=== PATIENT | male | born 1965 | race Caucasian/White ===

== ENCOUNTER → 2023-12-21 13:31 | Outpatient (REF) | payer OTHER, SELFPAY ==
[2023-12-21 15:27] LABS: Blood Urea Nitrogen 13 mg/dl (9-20); Calcium 9.5 mg/dl (8.4-10.2); Carbon Dioxide 26 mmol/L (22-30); Chloride 96 mmol/L (98-107); Glucose 86 mg/dl (70-99); Potassium 4.1 mmol/L (3.5-5.1); Sodium 138 mmol/L (135-145); eGFR > 60.00
== END ==
LOC: REG 13:31
PROVIDERS: ATTENDING PHYSICIAN Family Medicine
DX: R10.84 Generalized abdominal pain (principal)
CPT/HCPCS: 36415; 74177; 80048; Q9967